=== PATIENT | male | born 1975 | race Caucasian/White ===

== ENCOUNTER 2017-10-18 21:02 | Emergency (ER) | payer SELFPAY ==
[~2017-10-18] VITALS: Ht 180.3 cm; Wt 106.2 kg
[2017-10-18 21:26] VITALS: Ht 180.3 cm; Wt 106.2 kg
[2017-10-19 00:12] VITALS: BP 164/110
== END 2017-10-19 00:12 | disposition home or self-care (01) ==
LOC: ED 21:02
DX: S39.012A Strain of muscle, fascia and tendon of lower back, initial encounter (principal); J45.909 Unspecified asthma, uncomplicated; V49.9XXA Car occupant (driver) (passenger) injured in unspecified traffic accident, initial encounter; Y93.89 Activity, other specified; Y92.89 Other specified places as the place of occurrence of the external cause; Y99.8 Other external cause status

== ENCOUNTER 2018-05-27 00:24 | Emergency (ER) | payer OTHER ==
[~2018-05-27] VITALS: Ht 177.8 cm; Wt 105.2 kg
[2018-05-27 00:27] VITALS: Ht 177.8 cm; Wt 105.2 kg
[2018-05-27 01:26] LABS: CALCIUM 8.6 mg/dL (8.5-10.1); CHLORIDE SERUM 104 mmol/L (98-107); CREATININE SERUM 0.9 mg/dL (0.7-1.3); GFR1 > 60 mL/min; GLUCOSE SERUM 107 mg/dL (74-106); POTASSIUM SERUM 3.6 mmol/L (3.5-5.1); SODIUM SERUM 140 mmol/L (136-145)
[2018-05-27 01:30] LABS: BASOPHIL % 0.6 % (0-2); RED CELL DISTRIBUTION WIDTH 13.1 % (11.5-14.5)
[2018-05-27 01:31] LABS: AMPHETAMINE QUAL UR NONE DETECTED (See below)
[2018-05-27 01:31] LABS: ALKALINE PHOSPHATASE 93 U/L (46-116); ALT/SGPT 44 U/L (16-63); AST/SGOT 23 U/L (15-37); BILIRUBIN TOTAL 0.54 mg/dL (0.20-1.00); LIPASE 209 IU/L (73-393); MAGNESIUM 1.7 mg/dL (1.8-2.4); TOTAL PROTEIN, SERUM 7.3 g/dL (6.4-8.2)
[2018-05-27 01:40] LABS: PLATELET COUNT 287 x10^3mcL (130-400)
[2018-05-27 02:46] VITALS: BP 171/98
== END 2018-05-27 02:46 | disposition home or self-care (01) ==
LOC: ED 00:24
PROVIDERS: Emergency Medicine
DX: I10 Essential (primary) hypertension (principal); R00.2 Palpitations; J45.909 Unspecified asthma, uncomplicated
CPT/HCPCS: 36415; 85378; Q0092